=== PATIENT | female | born 1970 | race Caucasian/White ===

== ENCOUNTER → 2018-03-19 | Outpatient (CLI) | payer OTHER ==
--- NOTE | 2018-03-19 16:37 | XR ---
Lumbar spine HISTORY: Low back pain, injury, trauma 3 views of the lumbar spine Lumbar vertebral bodies show preserved height, alignment, and bone mineralization. There is multileve l spondylosis. Loss of disc height present at the intervertebral levels. Sclerosis present in the pos terior elements of the lower lumbar spine. IMPRESSION: Degenerative disc disease and facet arthropathy.
== END | disposition home or self-care (01) ==
LOC: RADXRMAIN 16:13
PROVIDERS: ATTEND Emergency Medicine
DX: M51.36 Other intervertebral disc degeneration, lumbar region (principal); M46.96 Unspecified inflammatory spondylopathy, lumbar region; S39.012A Strain of muscle, fascia and tendon of lower back, initial encounter
CPT/HCPCS: 72100

== ENCOUNTER 2018-10-03 10:39 | Emergency (ER) | payer OTHER ==
[2018-10-03 10:57] VITALS: BP 116/72; PULSE 81; RESP 16; TEMP 97.9
--- NOTE | 2018-10-03 11:27 | ED ---
General Adult HPI - General Chief complaint: Recheck/Abnormal Lab/Rx Stated complaint: [facility] - exposure Time Seen by Provider: 10/03/18 10:57 Source: patient, RN notes reviewed Mode of arrival: ambulatory Limitations: no limitations - History of Present Illness Initial comments: 47-year-old female presents to the emergency department for a chief complaint of needlestick. Patient states she was emptying the trash at work when she suddenly felt a quality engineer medical device her right left digit. Patient states she looked in there is a used insulin needle in the trash. Patient states she does know whose it is and he had his blood drawn earlier today to test for HIV and hepatitis. Patient did receive hepatitis B vaccine. Patient denies any other injuries. Patient denies significant laceration or pain.Patient has no other complaints at this time including shortness of breath, chest pain, abdominal pain, nausea or vomiting, headache, or visual changes. - Related Data Home Medications Medication Instructions Recorded Confirmed Bisoprolol Fumarate [Zebeta] 10 mg PO DAILY 10/03/18 10/03/18 Allergies Allergy/AdvReac Type Severity Reaction Status Date / Time No Known Allergies Allergy Verified 10/03/18 11:17 Review of Systems ROS Statement: Those systems with pertinent positive or pertinent negative responses have been documented in the HPI. ROS Other: All systems not noted in ROS Statement are negative. Past Medical History Past Medical History: Hypertension History of Any Multi-Drug Resistant Organisms: None Reported Past Surgical History: Section, Tubal Ligation Additional Past Surgical History / Comment(s): Gastric sleeve, endometriosis removal Past Psychological History: Depression Smoking Status: Never smoker Past Alcohol Use History: Rare Past Drug Use History: None Reported General Exam Limitations: no limitations General appearance: alert, in no apparent distress Head exam: Present: atraumatic Eye exam: Present: normal appearance, PERRL, EOMI. Absent: scleral icterus, conjunctival injection, periorbital swelling ENT exam: Present: normal exam, mucous membranes moist Neck exam: Present: normal inspection. Absent: tenderness, meningismus, lymphadenopathy Respiratory exam: Present: normal lung sounds bilaterally. Absent: respiratory distress, wheezes, rales, rhonchi, stridor Cardiovascular Exam: Present: regular rate, normal rhythm, normal heart sounds. Absent: systolic murmur, diastolic murmur, rubs, gallop, clicks Extremities exam: Present: other (No sign of trauma noted to the right fourth digit were patient received needle stick.) Course Vital Signs 10/03/18 10:51 Temperature 97.9 F Pulse Rate 81 Respiratory 16 Rate Blood Pressure 116/72 O2 Sat by Pulse 97 Oximetry Medical Decision Making - Medical Decision Making 47 old female presents to the ER for needle stick injury. Source of needle is known and he had his blood drawn earlier today. Patient does not want HIV prophylaxis at this time. She did receive hepatitis B vaccine. Appropriate blood work was done and patient will follow up with [facility]. She will return here if she has any worsening symptoms. - Lab Data Lab Results 10/03/18 10/03/18 Range/Units 11:17 11:17 Hep Bs Antibody Reactive H (Non-Reactive) Hep Bs Antibody, Quant 1000.0 mIU/mL Hep C IgG Ab Non-Reactive (Non-Reactive) HIV-1 Antibody Non-Reactive (Non-Reactive) HIV Ag/Ab Interpret HIV p24 Antibody Non-Reactive (Non-Reactive) HIV-2 Antibody Non-Reactive (Non-Reactive) HIV P24 Antigen Non-Reactive (Non-Reactive) Disposition Clinical Impression: Needle stick injury of finger of right hand Disposition: HOME SELF-CARE Condition: Good Instructions (If sedation given, give patient instructions): Needle Stick Injuries (ED) Additional Instructions: Please follow-up with [facility] in one to 2 days. Please return here to the emergency department if you have any worsening symptoms. Is patient prescribed a controlled substance at d/c from ED?: No Referrals: Rob Tesfaye MD [STAFF PHYSICIAN] - 1-2 days Time of Disposition: 11:25
[2018-10-03 17:38] LABS: Hepatitis C IgG Antibody Non-Reactive (Non-Reactive)
[2018-10-03 17:45] LABS: HIV 1 AB Non-Reactive (Non-Reactive); HIV AB P24 Non-Reactive (Non-Reactive); HIV P24 AG Non-Reactive (Non-Reactive)
== END 2018-10-03 11:38 | disposition home or self-care (01) ==
LOC: EC 10:39
DX: S61.234A Puncture wound without foreign body of right ring finger without damage to nail, initial encounter (principal); I10 Essential (primary) hypertension; Z79.899 Other long term (current) drug therapy; W46.0XXA Contact with hypodermic needle, initial encounter; Y99.0 Civilian activity done for income or pay
CPT/HCPCS: 36415; 86706; 86803; 87390; 99283

== ENCOUNTER → 2020-02-04 | Outpatient (CLI) | payer OTHER ==
[2020-02-04 15:11] VITALS: BP 114/62; PULSE 58; RESP 20; TEMP 98.5; BMI 37.3
--- NOTE | 2020-02-04 15:47 | P.HPBAR ---
Bariatric H&P - History & Physicial H&P Date: 02/04/20 History & Physicial: Visit/CC: transfer of care from [facility] Patient initial contact: Initial weight: Initial weight in pounds: Height: 5 ft 3.75 in Initial BMI: Last weight: Current weight: 97.976 kg Current weight in pounds: 216.00 Current BMI: 37.3 [place] body weight (based on NIH guidelines): 53.864 kg Excess body weight loss: The patient is a 49 year-old F who presents for Bariatric Assessment. She had bariatric surgery 3 years ago. She lost 125 pounds. She gained 35 pounds. She loves food. She reports trouble with habits with food. She reports weight trouble with eating due to her significant other. She brings in a cleanse for weight loss. She was 300 pounds, 2017 and had the sleeve. All family trouble with morbid obesity. Family is supportive. No GERD and does not family. No family history of esophageal or stomach. She was at [facility]. She just moved to the area. Prior to surgery, she had sleep apnea, still has hypertensive, no diabetes. Recommend bariatric lab She was on thyroid supplement and was taken off her supplement She was 25 mcg daily She is on heart medication. Recommend colonoscopy Cologaurd 1 year ago and was fine. She still has her gallbladder Recommend HIDA scan... for chronic diarrhea US gallbladder. NO imaging done. Referral to lunch cook Past Medical History Past Medical History: Hypertension History of Any Multi-Drug Resistant Organisms: None Reported Past Surgical History: Section, Tubal Ligation Additional Past Surgical History / Comment(s): Gastric sleeve, endometriosis removal, exploratory surgery Past Anesthesia/Blood Transfusion Reactions: No Reported Reaction Smoking Status: Former smoker - Past Family History Mother Family Medical History: Cancer Additional Family Medical History / Comment(s): brain and lung CA Father Family Medical History: Diabetes Mellitus Surgical - Exam Vital Signs Temp Pulse Resp BP Pulse Ox 98.5 F 58 L 20 114/62 98 02/04/20 15:08 02/04/20 15:08 02/04/20 15:08 02/04/20 15:08 02/04/20 15:08 Bariatric Checklist Checklist: Plan: Checklist: EGD: 1. Hiatal hernia: 2. H. Pylori: HgbA1c: Vitamin D: Smoking: Never smoker Primary care physician referral: Dr Lyons Psychiatry clearance: Cardiology clearance: Sleep study: Diet journal: VTE risk score: VTE risk level: Rehab needs at discharge:
== END | disposition home or self-care (01) ==
LOC: BARWHC3 14:45
PROVIDERS: ATTEND Surgery Plastic and Reconstructive Surgery
DX: Z48.815 Encounter for surgical aftercare following surgery on the digestive system (principal); Z98.84 Bariatric surgery status
CPT/HCPCS: 99201

== ENCOUNTER → 2020-02-26 | Outpatient (CLI) | payer OTHER ==
--- NOTE | 2020-02-26 09:50 | US ---
EXAMINATION TYPE: US gallbladder DATE OF EXAM: 02/26/2020 COMPARISON: EXAMINATION TYPE: US gallbladder DATE OF EXAM: 02/26/2020 COMPARISON: NONE CLINICAL HISTORY: R10.11 right upper quadrant pain. RUQ pain EXAM MEASUREMENTS: Liver Length: 17.5 cm Gallbladder Wall: 0.2 cm CBD: 0.3 cm Right Kidney: 10.7 x 4.5 x 4.4 cm Pancreas: wnl, tail obscured by overlying bowel gas Liver: wnl Gallbladder: 8 mm mobile hyperechoic focus Evidence for sonographic Brennan's sign: No CBD: wnl Right Kidney: Probable parapelvic cyst= 2.4 x 1.2 x 2.5 cm Visualized pancreas appears within normal limits. Visualized liver is unremarkable. Mobile nonshadowi ng gallstone. Central parapelvic cyst right kidney. No calyceal involvement to suggest hydronephrosis . IMPRESSION: Small intraluminal gallstone without secondary ultrasound evidence for acute cholecystiti s.
[2020-02-26 10:25] LABS: HCT 44.7 % (34.0-46.0); MCH 28.7 pg (25.0-35.0); MCHC 31.3 g/dL (31.0-37.0); MCV 91.6 fL (80.0-100.0); Platelet Count 193 k/uL (150-450); RBC 4.88 m/uL (3.80-5.40); RDW 13.7 % (11.5-15.5); WBC 7.9 k/uL (3.8-10.6)
[2020-02-26 10:31] LABS: Partial Thromboplastin Time 25.1 sec (22.0-30.0); Prothrombin Time 10.6 sec (9.0-12.0)
[2020-02-26 10:36] LABS: Calcium 9.5 mg/dL (8.4-10.2); Phosphorus 3.8 mg/dL (2.5-4.5); Potassium 3.8 mmol/L (3.5-5.1); Total Bilirubin 0.5 mg/dL (0.2-1.3); Total Protein 6.7 g/dL (6.3-8.2)
[2020-02-26 17:39] LABS: Hemoglobin A1C 5.2 % (4.0-6.0)
[2020-02-26 18:52] LABS: % Iron Saturation 24.23 (12.00-45.00)
[2020-02-26 19:01] LABS: Ferritin 105.5 ng/mL (10.0-291.0)
[2020-02-26 19:02] LABS: Folate, Serum 7.6 ng/mL
[2020-02-27 14:07] LABS: Zinc, Serum 82 ug/dL (60-130)
[2020-02-29 02:30] LABS: Selenium 172 mcg/L (63-160)
== END | disposition home or self-care (01) ==
LOC: RADUSWWP 09:17
PROVIDERS: ATTEND Surgery Plastic and Reconstructive Surgery
DX: K80.20 Calculus of gallbladder without cholecystitis without obstruction (principal); E21.1 Secondary hyperparathyroidism, not elsewhere classified; D50.9 Iron deficiency anemia, unspecified; K90.9 Intestinal malabsorption, unspecified; E55.9 Vitamin D deficiency, unspecified; K74.1 Hepatic sclerosis; N19 Unspecified kidney failure; K50.90 Crohn's disease, unspecified, without complications
CPT/HCPCS: 76705; 80053; 80061; 82306; 82525; 82607; 82728; 82746; 83036; 83540; 83550; 83735; 83970; 84100; 84134; 84255; 84425; 84443; 84590; 84630; 85027; 85610; 85730; 93005

== ENCOUNTER 2020-05-17 06:03 | Day surgery (SDC) | payer OTHER ==
[2020-05-11 15:57] VITALS: BMI 36.7
--- NOTE | 2020-05-17 05:06 | P.GSHP ---
History of Present Illness H&P Date: 05/17/20 CHIEF COMPLAINT: Cholecystitis HISTORY OF PRESENT ILLNESS: The patient is a 49-year-old female who presents with history of epigastric including right upper quadrant abdominal pain. She underwent diagnostic studies for her gallbladder. Separately her clinical picture was consistent with cholecystitis. Now she presents for surgical intervention. PAST MEDICAL HISTORY: Please see list PAST SURGICAL HISTORY: Please see list MEDICATIONS: Please see list ALLERGIES: Please see list SOCIAL HISTORY: Please see list FAMILY HISTORY: Please see list REVIEW OF ORGAN SYSTEMS: CONSTITUTIONAL: No reports of fevers or chills. HEENT: Denies any troubles with the vision or hearing. PHYSICAL EXAM: VITAL SIGNS: Afebrile vital signs stable GENERAL: Well-developed pleasant in no acute distress. HEENT: No scleral icterus. Extraocular movements grossly intact. Moist buccal mucosa. NECK: Supple without lymphadenopathy. CHEST: Unlabored respirations. Equal bilateral excursions. CARDIOVASCULAR: Regular rate regular rhythm rhythm. Distal 2+ pulses. ABDOMEN: Soft, nondistended. Tender along the epigastrium and right upper quadrant. MUSCULOSKELETAL: No clubbing, cyanosis, or edema. NEURO: Cranial nerves II to XII within normal limits. No focal or lateralizing signs. PSYCH: Alert and oriented to person, place and time. SKIN: Well-perfused good skin turgor. ASSESSMENT: 1. Epigastric and right upper quadrant abdominal pain 2. Chronic cholecystitis 3. Symptomatic gallstones. PLAN: 1. Will need a robotic cholecystectomy possible open. Benefits and risks were described. 2. Heparin for DVT prophylaxis 5000 units. 3. Antibiotic prophylaxis. Past Medical History Past Medical History: Hypertension, Musculoskeletal Disorder, Sleep Apnea/CPAP/BIPAP Additional Past Medical History / Comment(s): palpitations, bursitis left hip, nerve damage right shoulder causes tingling, DDD lower back, sleep apnea resolved after bariatric surg. History of Any Multi-Drug Resistant Organisms: None Reported Past Surgical History: Bariatric Surgery, Section, Tubal Ligation Additional Past Surgical History / Comment(s): Gastric sleeve 3 yrs. ago, exploratory surgery for endometriosis Past Anesthesia/Blood Transfusion Reactions: No Reported Reaction Additional Past Anesthesia/Blood Transfusion Reaction / Comment(s): slow to wake up Smoking Status: Former smoker - Past Family History Mother Family Medical History: Cancer Additional Family Medical History / Comment(s): brain and lung CA Father Family Medical History: Diabetes Mellitus Medications and Allergies Home Medications Medication Instructions Recorded Confirmed Type Bisoprolol Fumarate [Zebeta] 10 mg PO DAILY 10/03/18 05/11/20 History Cholecalciferol [Vitamin D3 (25 2,000 unit PO DAILY 02/04/20 05/11/20 History Mcg = 1000 Iu)] Multivitamin [Multivitamins Adult 1 each PO DAILY 02/04/20 05/11/20 History Gummies] [place]-3 Fatty Acids/Fish Oil [Fish 1 each PO DAILY 02/04/20 05/11/20 History Oil 1,000 mg Softgel] Cyanocobalamin (Vitamin B-12) 1,000 mcg PO DAILY 05/11/20 05/11/20 History [Vitamin B-12] Allergies Allergy/AdvReac Type Severity Reaction Status Date / Time cephalexin [From Keflex] Allergy Rash/Hives Verified 05/11/20 15:38
[~2020-05-17 06:03] MED LIST: ACETAMINOPHEN TAB 500 MG TAB PO STA; DEXAMETHASONE SOD PHOSPHATE 10 MG/ML 1 ML VIAL IV ONE; GABAPENTIN 300 MG CAP PO STA; HYDROmorphone 0.5 MG/0.5 ML SYRINGE IVP PRN; INDOCYANINE GREEN 25 MG VIAL IV STA; LACTATED RINGERS 1,000 ML IV SCH; MIDAZOLAM 2 MG/2 ML VIAL IV PRN; ONDANSETRON 4 MG/2 ML VIAL IVP ONE; SCOPOLAMINE 1.5MG/72HR PATCH TRANSDERM ONE
[2020-05-17] MEDS ORDERED: HEPARIN SODIUM,PORCINE 5,000 UNIT/ML 1 ML VIAL ONE (06:25)
[2020-05-17 06:56] LABS: Basophils # (A) 0.1 k/uL (0-0.2); Basophils % (A) 1 %; Eosinophils # (A) 0.1 k/uL (0-0.7); Eosinophils % (A) 2 %; HCT 44.1 % (34.0-46.0); Lymphocytes # (A) 1.9 k/uL (1.0-4.8); Lymphocytes % (A) 32 %; MCH 29.4 pg (25.0-35.0); MCHC 31.8 g/dL (31.0-37.0); MCV 92.6 fL (80.0-100.0); Mean Platelet Volume 8.8; Monocytes # (A) 0.3 k/uL (0-1.0); Monocytes % (A) 5 %; Neutrophils # (A) 3.5 k/uL (1.3-7.7); Neutrophils % (A) 58 %; Platelet Count 182 k/uL (150-450); RBC 4.76 m/uL (3.80-5.40); RDW 13.4 % (11.5-15.5)
[2020-05-17] MEDS ORDERED: SUCCINYLCHOLINE CHLORIDE 100 MG/5 ML SYR IV ONE (07:27)
[2020-05-17] MEDS ORDERED: LIDOCAINE 1% INJ 10MG/ML (20 ML MDV) ONE (07:27)
[2020-05-17] MEDS ORDERED: fentaNYL (PF) 50 MCG/ML 2 ML AMP ONE (07:27)
[2020-05-17] MEDS ORDERED: diphenhydrAMINE 50 MG/ML 1 ML VIAL ONE (07:27)
[2020-05-17] MEDS ORDERED: ROCURONIUM 10 MG/ML (10 ML VIAL) IV ONE (07:27)
[2020-05-17] MEDS ORDERED: NEOSTIGMINE 1 MG/ML 10 ML VIAL ONE (07:27)
[2020-05-17] MEDS ORDERED: INDOCYANINE GREEN 25 MG VIAL IV ONE (07:27)
[2020-05-17] MEDS ORDERED: MIDAZOLAM 2 MG/2 ML VIAL ONE (07:27)
[2020-05-17] MEDS ORDERED: PHENYLEPHRINE-0.9% NACL SYG 1 MG/10 ML SYRINGE ONE (07:27)
[2020-05-17] MEDS ORDERED: PROPOFOL 10 MG/ML 20 ML VIAL IV ONE (07:27)
[2020-05-17] MEDS ORDERED: GLYCOPYRROLATE 0.2 MG/ML 2 ML VIAL ONE (07:27)
[2020-05-17] MEDS ORDERED: ePHEDrine SULFATE/0.9% NACL/PF 50 MG/5 ML SYRINGE IV ONE (07:27)
[2020-05-17 07:30] LABS: ALT 14 U/L (4-34); AST 27 U/L (14-36); African American GFR (CKD) >90 (>60 ml/min/1.73 sqM); Albumin 3.8 g/dL (3.5-5.0); Alkaline Phosphatase 59 U/L (38-126); Anion Gap 4 mmol/L; Blood Urea Nitrogen 15 mg/dL (7-17); Calcium 9.2 mg/dL (8.4-10.2); Carbon Dioxide 29 mmol/L (22-30); Chloride 107 mmol/L (98-107); Glucose 100 mg/dL (74-99); Non-African American GFR(CKD) 90 (>60 ml/min/1.73 sqM); Sodium 140 mmol/L (137-145); Total Bilirubin 0.5 mg/dL (0.2-1.3); Total Protein 6.6 g/dL (6.3-8.2)
[2020-05-17 07:35] LABS: Potassium 4.3 mmol/L (3.5-5.1)
[2020-05-17] MEDS ORDERED: LIDOCAINE 1%-EPI 1:100,000 20 ML VIAL SQ ONE (07:35)
[2020-05-17] MEDS ORDERED: LACTATED RINGERS 1,000 ML IV ONE (08:25)
--- NOTE | 2020-05-17 08:41 | P.OP ---
Date of Procedure: 05/17/20 Description of Procedure: SURGEON: KATHY MURDOCK MD PREOPERATIVE DIAGNOSES: 1. Symptomatic gallstone 2. Right upper quadrant abdominal pain 3. Morbid obesity due to excess calories, BMI 37.2 4. Hypertensive heart disease 5. Obstructive sleep apnea POSTOPERATIVE DIAGNOSES: 1. Symptomatic gallstone 2. Right upper quadrant abdominal pain 3. Morbid obesity due to excess calories, BMI 37.2 4. Hypertensive heart disease 5. Obstructive sleep apnea 6. Hepatomegaly OPERATION: Robotic-assisted da Brian Xi laparoscopic cholecystectomy, multiport with FIREFLY ESTIMATED BLOOD LOSS: 5 mL. SPECIMENS REMOVED: Gallbladder. COMPLICATIONS: None. OPERATIVE FINDINGS: 1. Hepatomegaly INDICATIONS: The patient is a 49-year-old female who presents with symptomatic gallstones. Robotic assisted laparoscopic approach was described. Benefits and risks of the procedure including but not limited to bleeding, infection, injury to the biliary tree was described. Informed consent was obtained. DESCRIPTION OF PROCEDURE: Patient was brought to the operating room, placed in supine position. After general induction, the abdomen had been prepped and draped in standard sterile fashion. The robotic da Brian XI system was primed. After a timeout protocol was performed, the patient had been prepped and draped in standard sterile fashion. The patient was injected with indocyanine green. A 5 mm 0 degrees laparoscopic trocar entry was performed along the left upper quadrant. The abdomen insufflated to 15 mmHg pressure which was tolerated well. Diagnostic laparoscopy demonstrated no injury to bowel viscera or mesentery. The liver surface was unremarkable. Next, two 8 mm robotic ports were placed along the right upper abdomen. The camera 8-mm port was maintained along the epigastrium. Another 8 mm port was placed along the left upper abdominal wall after exchanging the 5 mm port. Please note that the ports were placed at least 10 to 15 cm away from the target anatomy of the gallbladder. The robot was docked along the left lateral abdomen. The patient was repositioned in reverse Trendelenburg position. Using a grasper for arm 3, a grasper for arm 4, including hook cautery for arm 1, the robotic system was docked and primed as described. Instruments were interchanged by the commercial lending assistant including hook cautery, Bovie cautery and clip appliers. I had sat at the console. Next attention was brought to the infundibulum and cystic structures. The inf undibulum and cystic duct were dissected free from surrounding tissues. The cystic duct was isolated. FIREFLY was used to identify the cystic artery and cystic structures. A critical view of safety was obtained. Large PLASTIC clips were used throughout the entire case. Using a clip research and development engineer, 3 clips were placed at the junction of the infundibulum and cystic duct. The cystic duct was divided between clips. Next, the cystic artery was cauterized. Electro-Bovie cautery was used to remove the gallbladder from the hepatic fossa. Hemostasis was checked and found to be adequate. The robot was undocked. I re-scrubbed into the case. Using a 10 mm Endo Catch bag via the left upper quadrant incision, the specimen was removed from the abdominal cavity. All pneumoperitoneum instruments were evacuated from the abdominal cavity. The incisions were reapproximated using 4-0 Monocryl in an interrupted subcuticular fashion. Fascial defects were less than 8 mm in size. Please note along the trocar sites, local anesthetic was placed as a field block prior to insertion of all instruments. Liquid glue was applied to the skin. At the end of the procedure needle, sponge, and instrument count had been verified correct by the technician trainee. The patient was transferred to postanesthesia care unit in stable condition. Intraoperative films were shared with the patient's family. Plan - Discharge Summary Discharge Rx Participant: Yes New Discharge Prescriptions: New Ibuprofen [Motrin] 600 mg PO Q8HR PRN #30 tab PRN Reason: Pain Acetaminophen [Tylenol] 650 mg PO Q4H #30 tab Continue Bisoprolol Fumarate [Zebeta] 10 mg PO DAILY Cholecalciferol [Vitamin D3 (25 Mcg = 1000 Iu)] 2,000 unit PO DAILY [place]-3 Fatty Acids/Fish Oil [Fish Oil 1,000 mg Softgel] 1 each PO DAILY Multivitamin [Multivitamins Adult Gummies] 1 each PO DAILY Cyanocobalamin (Vitamin B-12) [Vitamin B-12] 1,000 mcg PO DAILY Discharge Medication List Bisoprolol Fumarate [Zebeta] 10 mg PO DAILY 10/03/18 [History] Cholecalciferol [Vitamin D3 (25 Mcg = 1000 Iu)] 2,000 unit PO DAILY 02/04/20 [History] Multivitamin [Multivitamins Adult Gummies] 1 each PO DAILY 02/04/20 [History] [place]-3 Fatty Acids/Fish Oil [Fish Oil 1,000 mg Softgel] 1 each PO DAILY 02/04/20 [History] Cyanocobalamin (Vitamin B-12) [Vitamin B-12] 1,000 mcg PO DAILY 05/11/20 [History] Acetaminophen [Tylenol] 650 mg PO Q4H #30 tab 05/17/20 [Rx] Ibuprofen [Motrin] 600 mg PO Q8HR PRN #30 tab 05/17/20 [Rx] Follow up Appointment(s)/Referral(s): Kathy Murdock MD [STAFF PHYSICIAN] - 05/19/20 Patient Instructions/Handouts: Laparoscopic Cholecystectomy (DC) Activity/Diet/Wound Care/Special Instructions: No lifting over 10 pounds in 2 weeks until May 31. November shower. No bath tub soaks for two weeks until May 31. Diet as tolerated. No driving while on narcotics. Use Tylenol and ibuprofen/Aleve scheduled for the next 24-48 hours for best pain relief. Use ice along incisions for the today to prevent swelling. Discharge Disposition: HOME SELF-CARE
[2020-05-17 08:53] VITALS: TEMP 97.1
[2020-05-17 09:45] VITALS: RESP 16
[2020-05-17] MEDS ORDERED: KETOROLAC 15 MG/ML 1 ML VIAL ONE (09:59)
[2020-05-17] MEDS ORDERED: KETOROLAC 15 MG/ML 1 ML VIAL IVP ONE (10:00)
[2020-05-17 11:05] VITALS: BP 108/73; PULSE 89
== END 2020-05-17 11:34 | disposition home or self-care (01) ==
LOC: OR 06:03
PROVIDERS: ATTEND Surgery Plastic and Reconstructive Surgery
DX: K80.10 Calculus of gallbladder with chronic cholecystitis without obstruction (principal); E66.01 Morbid (severe) obesity due to excess calories; I11.9 Hypertensive heart disease without heart failure; G47.33 Obstructive sleep apnea (adult) (pediatric); R16.0 Hepatomegaly, not elsewhere classified; G64 Other disorders of peripheral nervous system; M51.37 Other intervertebral disc degeneration, lumbosacral region; N80.9 Endometriosis, unspecified; F32.9 Major depressive disorder, single episode, unspecified; Z68.37 Body mass index [BMI] 37.0-37.9, adult; Z87.39 Personal history of other diseases of the musculoskeletal system and connective tissue; Z98.84 Bariatric surgery status; Z98.890 Other specified postprocedural states; Z98.51 Tubal ligation status; Z91.89 Other specified personal risk factors, not elsewhere classified; Z87.891 Personal history of nicotine dependence; Z79.899 Other long term (current) drug therapy; Z88.1 Allergy status to other antibiotic agents; Z99.89 Dependence on other enabling machines and devices; Z80.1 Family history of malignant neoplasm of trachea, bronchus and lung; Z80.8 Family history of malignant neoplasm of other organs or systems; Z83.3 Family history of diabetes mellitus
CPT/HCPCS: 47562; S2900; 80053; 81025; 85025; 88304

== ENCOUNTER → 2020-05-19 | Outpatient (CLI) | payer OTHER ==
[2020-05-19 11:50] VITALS: BP 134/66; PULSE 53; RESP 16; TEMP 98.3; BMI 37.5
--- NOTE | 2020-05-19 11:56 | P.PN ---
Subjective Progress Note Date: 05/19/20 DATE OF SERVICE: 05/19/2020 CHIEF COMPLAINT: Status post sleeve gastrectomy HISTORY OF PRESENT ILLNESS: Olga Torres is a 49-year-old female who is status post sleeve gastrectomy, 2017. She is 3 years out. She is now status post cholecystectomy, 05/17/20. She is doing well. She is eating pasta, bread, rice and potatoed. She reports appropriate tenderness along left upper quadrant incision. At height of 5 feet 3.75 inches, her ideal body weight is 140 pounds. Her highest weight was 300 pounds, BMI 52.0. She comes in 217 pounds from 222 pounds, 1 months ago. She has lost 5 pounds in 1 months. Her body mass index is 37.5 She is 83 pounds overweight. Her lifetime weight loss is 83 pounds. Percent excess weight loss is 52 % lifetime. PHYSICAL EXAM: VITAL SIGNS: Height 5 foot 3.75 inches, weight 217 pounds. BMI 37.5 Vital Signs Temp 98.3 F 05/19/20 11:47 Pulse 53 L 05/19/20 11:47 Resp 16 05/19/20 11:47 BP 134/66 05/19/20 11:47 Pulse Ox GENERAL: Well-developed in no acute distress. HEENT: No scleral icterus. Extraocular movements grossly intact. Hears conversational speech. No nasal drainage. NECK: Supple without lymphadenopathy. CHEST: Nonlabored respirations with equal bilateral excursions. CARDIOVASCULAR: Regular rate and regular rhythm. Distal 2+ pulses. ABDOMEN: Obese, soft, nondistended. Mild tenderness left upper quadrant. No cellulitis. MUSCULOSKELETAL: No clubbing, cyanosis. NEURO: No focal or lateralizing signs. Cranial nerves 2 through 12 grossly within normal limits. PSYCH: Appropriate affect. Alert and oriented to person, place and time. SKIN: Good skin turgor. Well perfused. ASSESSMENT: 1. Morbid obesity due to excess calories 2. Body mass index of 52.0 to 37.5 3. Hypothyroidism 4. Hypertensive heart disease 5. Obstructive sleep apnea 6. Change in bowel habits. 7. Status post sleeve gastrectomy 8. Status post cholecystectomy 9. Hepatomegaly PLAN: 1. She is doing well. 2. She has severe hepatomegaly where carbohydrate restriction from pasta, bread, rice potato is described. 3. Recommend binder for comfort. Objective - Vital Signs Vital signs: Vital Signs Temp 98.3 F 05/19/20 11:47 Pulse 53 L 05/19/20 11:47 Resp 16 05/19/20 11:47 BP 134/66 05/19/20 11:47 Pulse Ox Intake & Output 05/18/20 05/19/20 05/19/20 18:59 06:59 18:59 Weight 98.43 kg
--- NOTE | 2020-05-20 15:56 | P.PN ---
Progress Note - Text Progress Note Date: 05/20/20 To Whom It May Concern: Olga Torres is under my surgical care. She may return to work with 10 pound restriction on May 31 due to recent surgery. She will be off restrictions June 07. Regards, Kathy Murdock MD, FACS, FICS, FASBS, Dip ABOM
== END | disposition home or self-care (01) ==
LOC: BARWHC3 11:21
PROVIDERS: ATTEND Surgery Plastic and Reconstructive Surgery
DX: E66.01 Morbid (severe) obesity due to excess calories (principal); E03.9 Hypothyroidism, unspecified; I11.9 Hypertensive heart disease without heart failure; G47.33 Obstructive sleep apnea (adult) (pediatric); R16.0 Hepatomegaly, not elsewhere classified; R19.4 Change in bowel habit; Z68.37 Body mass index [BMI] 37.0-37.9, adult; Z90.49 Acquired absence of other specified parts of digestive tract; Z98.84 Bariatric surgery status
CPT/HCPCS: 99211

== ENCOUNTER → 2024-10-07 | Outpatient (CLI) | payer BC ==
--- NOTE | 2024-10-08 07:10 | NM ---
EXAMINATION TYPE: NM DatScan Brain SPECT DATE OF EXAM: 10/07/2024 COMPARISON: NONE CLINICAL INDICATION: Female, 53 years old with history of R25.1 TREMOR, UNSPECIFIED; TECHNIQUE: 10 drops of Lugol's solution was administered 1 hour prior to injection as a thyroid bloc kyle agent. After the administration of 4.3 mCi I-123 Ioflupane DaTscan. Images obtained [address] injection. SPECT images of the brain were acquired with axial and coronal reconstructions. FINDINGS: The DaTSCAN demonstrates normal uptake of tracer throughout the striata. Consequently there is no evidence of loss of the pre-synaptic dopaminergic terminals on this investigation. IMPRESSION: Normal study. [facility], , 10/08/2024 7:08 AM
== END | disposition home or self-care (01) ==
LOC: RADNMMAIN 10:40
PROVIDERS: ATTEND Psychiatry & Neurology Neurology
DX: R25.1 Tremor, unspecified (principal)
CPT/HCPCS: 78803; A9584